=== PATIENT | female | born 1960 | race Caucasian/White ===

== ENCOUNTER 2023-08-28 22:10 | Emergency (ER) | payer BC, SELFPAY ==
[2023-08-28 22:18] VITALS: BP 118/82
[2023-08-28 22:53] VITALS: BP 118/83
[2023-08-28 22:59] LABS: % Basophils 0.5 % (0-2); % Eosinophils 2.7 % (0-6); % Immature Granulocytes 0.2 % (0-0.5); % Lymphocytes 38.1 % (20.5-51.1); % Monocytes 8.4 % (1.7-9.3); % Neutrophils 50.1 % (42.2-75.2); Absolute Basophils 0.1 10^3/uL (0-0.2); Absolute Eosinophils 0.3 10^3/uL (0-0.7); Absolute Lymphocytes 3.9 10^3/uL (1.2-3.4); Absolute Monocytes 0.9 10^3/uL (0.1-0.6); Absolute Neutrophils 5.2 10^3/uL (1.4-6.5); Hematocrit 38.1 % (37.0-47.0); Hemoglobin 12.9 g/dL (12.0-16.0); Mean Corp Hgb Conc. 33.9 g/dL (33.0-37.0); Mean Corpuscular Hgb 31.2 pg (27.0-31.0); Mean Platelet Volume 10.1 fL (7.4-10.4); Nucleated Red Blood Cells % 0 %; Platelet Count 282 10^3/uL (130-400); Red Blood Cell Count 4.14 10^6/uL (4.20-5.40); Red Cell Dist. Width 12.5 % (11.5-14.5); White Blood Cell Count 10.3 10^3/uL (4.8-10.8)
[2023-08-28 23:00] VITALS: BP 118/74
[2023-08-28 23:12] LABS: ALT (SGPT) 19 U/L (0-35); AST (SGOT) 27 U/L (14-36); Albumin 4.3 g/dl (3.5-5.0); Alkaline Phosphatase 98 U/L (38-126); Blood Urea Nitrogen 22 mg/dl (7-17); Carbon Dioxide 26 mmol/L (22-30); Chloride 104 mmol/L (98-107); Glucose 90 mg/dl (70-99); Potassium 3.5 mmol/L (3.5-5.1); Sodium 137 mmol/L (135-145); Total Bilirubin 0.3 mg/dl (0.2-1.3); eGFR > 60.00
[2023-08-29] VITALS: BP 112/73
--- NOTE | 2023-08-29 00:42 | ED.GENMED ---
History of Present Illness
<WESTON Dill - Last Filed: 08/29/23 00:58>
General
Chief Complaint: Numbness
Source: patient
Exam Limitations: none
Time Seen by Provider: 08/29/23 00:20
Nursing documentation reviewed up to this point in time: agreed with
Travel History
Have you had any contact with someone who has COVID-19?: No
Do you have any symptoms of coronavirus? Fever > 100 degrees, chills, cough, shortness of breath, sore throat, loss of taste or smell, muscle aches, or headache?: No
History of Present Illness
History of Present Illness:
patient is a 62 y/o female with PMH of migraines presenting after an episode of weakness 1 day ago. patient states she woke up in the middle of the night to use the restroom and felt full body weakness with associated uncoordination. patient states
that she then used the restroom and doesn't remember what happened but then woke up on the floor. Patient does not recall head strike. Patient then went back to bed. Patient admits to waking up again for work in the morning with a migraine. Patient
admits to a history of migraines and she took triptans and sudafed which gave relief. Patient admits that since she has been in the room she has felt increased dizziness that she describes as 'fuzzy' and nausea with no vomiting. Patient denies
recent illness or change in medication. Patient denies SOB, CP, visual changes, current numbness, V/C, fever, chills. patient admits to a glass of wine after work and 2 glasses of wine the night prior.
Past History
<WESTON Dill - Last Filed: 08/29/23 00:58>
Past History
ED Past Medical History: Psychiatric
ED Past Surgical History: Gynecological
Social History
Tobacco: Non-smoker
Personal:
Living: with family
Family History
Family History: Negative Early CAD
Review of Systems
<Camille HerediawsWESTON lua Last Filed: 08/29/23 00:58>
Review of Systems
All Other Systems: Not applicable
Constitutional: Reports no symptoms
EENT: Reports no symptoms
Respiratory: Reports no symptoms
Cardiac: Reports no symptoms
ABD/GI: Reports nausea
: Reports no symptoms
Musculoskeletal: Reports no symptoms
Skin: Reports no symptoms
Neurological: Reports dizzy, headache and weakness
Endocrine: Reports no symptoms
Hematologic/Lymphatic: Reports no symptoms
Psychiatric: Reports no symptoms
Phy Exam
<WESTON Dill Last Filed: 08/29/23 00:58>
General Physical Exam
General Presentation: well appearing and no apparent distress
General Skin: warm and dry
General Habitus: normal
General Mental: alert
General Hydration: appears well hydrated
ENT Exam
ENT Exam: EOMI, pharynx normal, neck supple and normocephalic
Eye Exam
Eye Exam: PERRL, cornea clear and conjunctiva normal
Cardiovascular Exam
Cardiovascular Exam: regular rate/rhythm, no edema, no murmur and normal peripheral pulses
Pulmonary Exam
Pulmonary Exam: lungs clear, no respiratory distress, no rales, no crackles, no rhonchi, no stridor, no wheezing and no cough
Gastrointestinal Exam
Gastrointestinal Exam: normal bowel sounds, non tender, soft, no organomegaly, no pulsatile mass and non distended
Neurological Exam
Neurological Exam: alert, oriented x3, no motor deficits and speech normal
Musculoskeletal Exam
Musculoskeletal Exam: full ROM and no edema
Skin Exam
Skin Exam: normal color, warm/dry, no rash and no petechia
Psychiatric Exam
Psychiatric Exam: normal mood/affect
Course
<Camille Nuñez PAUL Last Filed: 08/29/23 00:58>
Orders/Labs/Results
Orders:
Orders
08/28/23 22:49
Complete Blood Count/With Diff Urgent
Comprehensive Metabolic Panel Urgent
08/29/23 00:01
Levetiracetam Injectable [Keppra] 500 mg .ROUTE .STK-MED ONE
08/29/23 00:48
CT Head W/o Iv Contrast Urgent
Comment:
Reason For Exam: syncope, (?)head injury, headache
08/29/23 00:54
Orthostatic VS- Treatment ONCE
Abnormal Lab Results
08/28/23
22:49
RBC 4.14 L 10^6/uL
(4.20-5.40)
MCH 31.2 H pg
(27.0-31.0)
Absolute Lymphs (auto) 3.9 H 10^3/uL
(1.2-3.4)
Absolute Monos (auto) 0.9 H 10^3/uL
(0.1-0.6)
BUN 22 H mg/dl
(7-17)
08/28/23 22:49
08/28/23 22:49
Vital Signs
Initial and Last Documented VS:
Initial Vital Signs
Temp Pulse Resp BP Pulse Ox
97.6 F 78 22 118/82 98
08/28/23 22:18 08/28/23 22:18 08/28/23 22:18 08/28/23 22:18 08/28/23 22:18
Last Documented Vital Signs
Temp Pulse Resp BP Pulse Ox
97.6 F 75 15 121/77 96
08/28/23 22:18 08/29/23 01:00 08/29/23 01:00 08/29/23 01:00 08/29/23 01:00
<Jeannie Vargas, - Last Filed: 08/29/23 02:17>
Orders/Labs/Results
Orders:
Orders
08/28/23 22:49
Complete Blood Count/With Diff Urgent
Comprehensive Metabolic Panel Urgent
08/29/23 00:01
Levetiracetam Injectable [Keppra] 500 mg .ROUTE .STK-MED ONE
08/29/23 00:48
CT Head W/o Iv Contrast Urgent
Comment:
Reason For Exam: syncope, (?)head injury, headache
08/29/23 00:54
Orthostatic VS- Treatment ONCE
Abnormal Lab Results
08/28/23
22:49
RBC 4.14 L 10^6/uL
(4.20-5.40)
MCH 31.2 H pg
(27.0-31.0)
Absolute Lymphs (auto) 3.9 H 10^3/uL
(1.2-3.4)
Absolute Monos (auto) 0.9 H 10^3/uL
(0.1-0.6)
BUN 22 H mg/dl
(7-17)
08/28/23 22:49
08/28/23 22:49
Vital Signs
Initial and Last Documented VS:
Initial Vital Signs
Temp Pulse Resp BP Pulse Ox
97.6 F 78 22 118/82 98
08/28/23 22:18 08/28/23 22:18 08/28/23 22:18 08/28/23 22:18 08/28/23 22:18
Last Documented Vital Signs
Temp Pulse Resp BP Pulse Ox
97.6 F 75 15 121/77 96
08/28/23 22:18 08/29/23 01:00 08/29/23 01:00 08/29/23 01:00 08/29/23 01:00
<WESTON Dill - Last Filed: 08/29/23 00:58>
MDM/Problems Addressed
Differential Diagnosis Includes:
vasovagal event
migraine
orthostatic hypotension
MDM/Problems Addressed:
weakness
<WESTON Dill - Last Filed: 08/29/23 00:58>
*Critical Care Note
Total Time (30-74mins, 75-104mins- exclusive of procedures): Not Applicable
<Jeannie Vargas DO - Last Filed: 08/29/23 02:17>
*Radiology
Radiology exam reviewed: radiology read reviewed (CT of the head is unremarkable.)
*Pulse Oximetry
Patient hypoxic: no
*Pesticide Use Medical Coordinator Interpretation
Rate: normal
Interpretation: normal
Rhythm: sinus
ED Attending Note
<WESTON Dill - Last Filed: 08/29/23 00:58>
-
Portions of this chart may have been created with voice recognition software.� Occasional wrong word or��sound alike� substitutions may have occurred due to the inherent limitations of voice recognition software.
<Jeannie Vargas DO - Last Filed: 08/29/23 02:17>
ED Attending Note
Patient seen and examined by attending physician: Yes
I performed the substantive portion of visit, reviewed & personally made and approve the management plan that is documented in note by myself or JARRET.: Yes
I performed a history and physical exam of patient and discussed management with resident, I reviewed resident's note and agree with documented findings and plan of care.: Yes
ED Attending Note:
This is a 62-year-old woman who has history of migraine headaches, anxiety/depression who states she got up in the middle the night last night to go to the bathroom and admits to feeling wobbly along with tingly and numb all over. She vaguely
remembers sitting on the toilet to void and then the next thing she remembers she woke up on the bathroom floor. She was able to get herself up and walked back into bed but noted that her thought that she was stumbling and 'out of it' with
walking back to bed. She got up this morning and noted a migraine headache, typical migraine headache which generally occur once per week. She took her usual triptan along with Sudafed which generally promptly resolves her headache. She was able
to go to work today but headache persisted until around 12 noon and eventually resolved without return.
Patient was concerned with these symptoms, primarily concerned with tingling all over, concerned that she possibly had a TIA. She had no return of tingling, she denies lateralizing weakness but she did note very mild dizziness tonight along with
mild nausea. She denies a sense of spinning nor movement. She denies nasal congestion or sore throat, no fever nor chills. No neck pain or back pain. No chest pain or palpitations, no cough nor shortness of breath.
She did drink 1 glass of wine tonight, 2 glasses of wine last night. Not unusual for her.
GENERAL: 62-year-old woman appears her stated age, bright and alert, pleasant, appears in no acute distress.
EYE: pupils equal and reactive. Extra ocular muscles intact. Anicteric
NECK: Supple, nontender, no meningismus, no significant adenopathy. No bruit.
ENT: oral mucosa is moist. No rhinorrhea.
CARDIAC: Regular rate and rhythm. no murmur.
LUNGS: Clear breath sounds bilaterally, no acute respiratory distress, no wheezes/rales/rhonchi
ABDOMEN: Soft, nondistended, without focal tenderness, normoactive BS.
NEUROLOGICAL: Alert and oriented x3, cranial nerves II through XII grossly intact. Motor strength 5/5 bilaterally. Gross sensation is intact. No focal neuro deficits.
SKIN: Warm and dry, normal color, skin intact. No rash.
MUSCULOSKELETAL: No C/C/E. peripheral pulses are full and equal b/l. No palpable tenderness.
PSYCH: Normal and appropriate interaction.
History is not consistent with CVA/TIA, and more concerned with syncopal event perhaps vasovagal syncope, arrhythmia.
Patient reports longstanding history of migraine headaches generally occurring once per week and notes today's headache was similar to her typical migraine however lasted a bit longer. As such we will check CT of the head specially with concern for
potential closed head injury.
Will continue template reproduction technician to assess for potential arrhythmia. Thus far showing normal sinus rhythm.
Will check labs assess for prerenal azotemia, electrolyte abnormality.
Will check orthostatic vital signs.
08/29/2023 0204 AM
Labs are unremarkable save for minimally elevated BUN/minimal prerenal azotemia. Orthostatic vital signs however are negative.
CT of the head is unremarkable.
Monitor continues to show normal sinus rhythm without ectopy.
Orthostatic vital signs are negative.
Patient continues to feel well, no return of paresthesias, no dizziness, no headache.
I still have concern for syncopal event last night perhaps vasovagal, other consideration is tacky versus bradycardia arrhythmia, less likely seizure.
Discussed importance of remaining well-hydrated on a daily basis. Recommend she hold off on her nightly glass of wine as well.
Prompt follow-up with PCP for recheck.
Discharge Plan
Departure
Patient Disposition: Home (Routine Discharge)
Date of Disposition: 08/29/23
Time of Disposition: 02:13
Patient with high blood pressure during this ER visit?: No
Condition: Good
Discharge Problem:
Paresthesia, Syncope
Instructions: Syncope (Fainting) (DC), Paresthesia (DC)
Prescriptions:
No Action
ondansetron HCl [Zofran] 8 mg Tablet
8 mg PO Q8H PRN (Reason: nausea)
meloxicam 15 mg Tablet
15 mg PO PRN PRN (Reason: pain)
rizatriptan 10 mg Tablet
10 mg PO PRN PRN (Reason: migraines)
sertraline [Zoloft] 100 mg Tablet
100 mg PO DAILY
bupropion HCl [Wellbutrin] 100 mg Tablet
300 mg PO DAILY
acyclovir 5 % Cream
1 applic TOPICAL PRN PRN (Reason: fever blisters)
Patient Comments:
patient last took one month ago
Vitamin D3
1 cap PO DAILY
fluticasone propionate [Flonase Allergy Relief] 50 mcg/actuation [place],Suspension
1 spray INTRANASAL DAILY
Referrals:
Frances Henry MD [Family Provider] - Call in 1-3 days for appt
Interventions
Interventions:
*Risk Screen - Suicide Last Done: 08/28/23 22:18
*Neglect/Abuse Screening Last Done: 08/28/23 22:18
ED- Fall Risk Assessment Last Done: 08/28/23 22:37
ED- Cardiac Assessment Last Done: 08/28/23 22:37
ED- Neurological Assessment Last Done: 08/28/23 22:37
ED- Pulmonary Assessment Last Done: 08/28/23 22:37
ED Swallowing Screen Last Done: 08/28/23 22:37
[2023-08-29 01:00] VITALS: BP 121/77
[2023-08-29 01:50] VITALS: BP 102/72; BP 118/66; BP 123/89; PULSE 74; PULSE 81
== END 2023-08-29 02:35 | disposition home or self-care (01) ==
LOC: EMR 22:10
PROVIDERS: EMERGENCY PHYSICIAN Emergency Medicine; FAMILY PHYSICIAN Internal Medicine
DX: R20.0 Anesthesia of skin (principal); R55 Syncope and collapse; F41.8 Other specified anxiety disorders
CPT/HCPCS: 99284; 70450; 80053; 85025

== ENCOUNTER → 2023-09-07 11:23 | Outpatient (REF) | payer BC, SELFPAY | LOC: HWWDC 11:23 | PROVIDERS: ATTENDING PHYSICIAN Nurse Practitioner Family | DX: Z12.31 Encounter for screening mammogram for malignant neoplasm of breast (principal) | CPT/HCPCS: 77063; 77067 ==

== ENCOUNTER → 2023-09-23 06:41 | Outpatient (REF) | payer BC, SELFPAY | LOC: MRI 3T 06:41 | PROVIDERS: ATTENDING PHYSICIAN Physician Assistant Medical; FAMILY PHYSICIAN Internal Medicine | DX: R55 Syncope and collapse (principal) | CPT/HCPCS: 70551 ==

== ENCOUNTER → 2025-02-06 09:00 | Outpatient (REF) | payer BC, SELFPAY | LOC: HWWDC 09:00 | PROVIDERS: ATTENDING PHYSICIAN Internal Medicine | DX: Z12.31 Encounter for screening mammogram for malignant neoplasm of breast (principal) | CPT/HCPCS: 77063; 77067 ==